=== PATIENT | female | born 1995 | race Caucasian/White ===

== ENCOUNTER 2019-04-10 01:06 | Observation (INO) | payer SELFPAY ==
[~2019-04-10] VITALS: Ht 162.6 cm; Wt 88.0 kg
[2019-04-10] MEDS ORDERED: PNV11TAB MT (01:11)
[2019-04-10] MEDS ORDERED: ACETAMINOPHEN 500MG TABLET PO NR (01:45)
[2019-04-10] MEDS ORDERED: DEXT 5%/LACTATED RINGERS 1,000 ML IV SCH (01:45)
== END 2019-04-10 04:20 | disposition home or self-care (01) ==
LOC: 8 EST LDRP 01:06 → EDBD 01:06
PROVIDERS: ADMIT Specialist; ATTEND Specialist
DX: O26.892 Other specified pregnancy related conditions, second trimester (principal); R10.30 Lower abdominal pain, unspecified; Z3A.22 22 weeks gestation of pregnancy
CPT/HCPCS: 99281; G0378